=== PATIENT | female | born 1985 | race Caucasian/White ===

== ENCOUNTER → 2019-05-06 | Outpatient (CLI) | payer BC ==
--- NOTE | 2019-05-06 14:37 | Diagnostic Imaging Report ---
INDICATION: Low back pain. Lumbar spine. FINDINGS: AP and lateral views of the lumbar spine show normal vertebral body height and alignment. There is disc space narrowing at L5-S1. Disc spaces are otherwise normal. IMPRESSION: Degenerative disc changes at L5-S1. Dictated by: Dictated on workstation # [id number]
== END ==
LOC: RAD FS 14:13
PROVIDERS: ATTEND Family Medicine
DX: M51.17 Intervertebral disc disorders with radiculopathy, lumbosacral region (principal)
CPT/HCPCS: 72100